=== PATIENT | female | born 1990 | race American Indian/Alaskan Native ===

== ENCOUNTER 2017-05-01 17:52 | Emergency (ER) | payer MEDICAID ==
[2017-05-01 17:59] VITALS: BP 146/65
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
[2017-05-01] MEDS ORDERED: Ketorolac 30 MG/ML SDV IM ONE (18:05)
[2017-05-01] MEDS ORDERED: Bacitracin Oint 1 GM U/D Packet TOP ONE (18:43)
== END 2017-05-01 19:04 | disposition home or self-care (01) ==
LOC: DL.ED 17:52
DX: S83.91XA Sprain of unspecified site of right knee, initial encounter (principal); S80.01XA Contusion of right knee, initial encounter; S80.211A Abrasion, right knee, initial encounter; F41.9 Anxiety disorder, unspecified; F32.9 Major depressive disorder, single episode, unspecified; F17.210 Nicotine dependence, cigarettes, uncomplicated; Z79.899 Other long term (current) drug therapy; Z90.710 Acquired absence of both cervix and uterus; W17.89XA Other fall from one level to another, initial encounter
CPT/HCPCS: 73562; 96372; 99283; J1885

== ENCOUNTER 2018-03-22 16:52 | Emergency (ER) | payer MEDICAID ==
[2018-03-22] MEDS ORDERED: Sulfamethoxazole/Trimethoprim 800-160 MG Tab PO ONE ×2 (16:53→18:59)
[2018-03-22 17:22] VITALS: BP 125/56
[2018-03-22] MEDS ORDERED: Phenazopyridine 95 MG Tab PO ONE (18:59)
--- NOTE | 2018-03-22 19:06 | EDM.PDOC ---
ED HPI GENERAL MEDICAL PROBLEM - General Chief Complaint: Genitourinary Problem Stated Complaint: [id number] BLOOD CLOTS IN URINE Time Seen by Provider: 03/22/18 18:50 Source of Information: Reports: Patient History Limitations: Reports: No Limitations - History of Present Illness INITIAL COMMENTS - FREE TEXT/NARRATIVE: C/O urinary frequency and burning since yesterday morning. Noted some blood yesterday in urine, few clots today with voiding. No fever, chills or flank pain. 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 (See Below) Other OB/BYN History: perforated uterine wall s/p IUD insertion, ovarian cyst; has had 2 d&c's in the past Musculoskeletal History: Reports: Back Pain, Chronic Neurological History: Reports: None Psychiatric History: Reports: Anxiety, Depression Other Psychiatric History: insomnia Endocrine/Metabolic History: Reports: None Hematologic History: Reports: None Immunologic History: 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 (See Below) Other Immunologic History: Hepitits C Oncologic (Cancer) History: Reports: None Dermatologic History: Reports: None - Infectious Disease History Infectious Disease History: Reports: Hepatitis C - Past Surgical History Head Surgeries/Procedures: Reports: None GI Surgical History: 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 (See Below) Other GI Surgeries/Procedures: EXPLORATORY LAPAROTOMY Female Surgical History: Reports: Section, D&C, Hysterectomy Social & Family History - Family History Family Medical History: Noncontributory - Tobacco Use Smoking Status *Q: Current Every Day Smoker Years of Tobacco use: 12 Packs/Tins Daily: 0.5 - Caffeine Use Caffeine Use: Reports: Soda - Recreational Drug Use Recreational Drug Use: No - Living Situation & Occupation Living situation: Reports: , with Family Occupation: Employed ED ROS GENERAL - Review of Systems Review Of Systems: ROS reveals no pertinent complaints other than HPI. ED EXAM, RENAL/ - Physical Exam Exam: See Below Exam Limited By: No Limitations General Appearance: Alert, No Apparent Distress Eye Exam: Bilateral Eye: EOMI Nose: Normal Inspection Throat/Mouth: Normal Voice Head: Atraumatic, Normocephalic Neck: Full Range of Motion Respiratory/Chest: No Respiratory Distress, Lungs Clear Cardiovascular: Normal Peripheral Pulses, Regular Rate, Rhythm Back Exam: No: CVA Tenderness (L), CVA Tenderness (R) Neurological: Alert, Oriented Psychiatric: Normal Affect, Normal Mood Skin Exam: Warm, Dry, Intact, Normal Color Course - Vital Signs Last Recorded V/S: Last Vital Signs Temp 97.8 F 03/22/18 17:20 Pulse 64 03/22/18 17:20 Resp 16 03/22/18 17:20 BP 125/56 L 03/22/18 17:20 Pulse Ox 100 03/22/18 17:20 - Orders/Labs/Meds Orders: Active Orders 24 hr Category Date Time Status UA W/MICROSCOPIC [URIN] Stat Lab 03/22/18 17:39 Ordered Labs: Laboratory Tests 03/22/18 Range/Units 17:39 Urine Color Yellow (YELLOW) Urine Appearance Turbid (CLEAR) Urine pH 6.0 (5.0-9.0) Ur Specific [place] >= 1.030 (1.005-1.030) Urine Protein >=300 H (NEGATIVE) Urine Glucose (UA) Negative (NEGATIVE) Urine Ketones Trace H (NEGATIVE) Urine Occult Blood Large H (NEGATIVE) Urine Nitrite Negative (NEGATIVE) Urine Bilirubin Small H (NEGATIVE) Urine Urobilinogen 1.0 (0.2-1.0) mg/dL Ur Leukocyte Esterase Trace H (NEGATIVE) Urine RBC >100 H /HPF Urine WBC 20-30 H (0-5/HPF) /HPF Ur Epithelial Cells Moderate H /HPF Amorphous Sediment Few (0/HPF) /HPF Urine Bacteria Moderate H (0-FEW/HPF) /HPF Urine Mucus Moderate H /LPF Meds: Medications Discontinued Medications Generic Name Dose Route Start Last Admin Trade Name Freq PRN Reason Stop Dose Admin Phenazopyridine HCl 190 mg 03/22/18 18:59 Urinary Pain Relief PO 03/22/18 19:00 ONETIME ONE Trimethoprim/Sulfamethoxazole 1 tab 03/22/18 18:59 Septra Ds PO 03/22/18 19:00 ONETIME ONE Departure - Departure Time of Disposition: 19:03 Disposition: Home, Self-Care 01 Condition: Good Clinical Impression: UTI, Urinary tract infectious disease - Discharge Information Instructions: Urinary Tract Infection, Adult, [id number] Referrals: Anay Castano [employer]OL [employer]ENT [Primary Care Provider] - Additional Instructions: push fluids Bactrim DS one twice daily for 5 days follow up if symptoms worsen with flank pain and fever/chills
[2018-03-22] MEDS ORDERED: Sulfamethoxazole/Trimethoprim 800-160 MG Tab ONE (19:12)
== END 2018-03-22 19:18 | disposition home or self-care (01) ==
LOC: DL.ED 16:52
DX: N39.0 Urinary tract infection, site not specified (principal); F17.210 Nicotine dependence, cigarettes, uncomplicated; Z91.048 Other nonmedicinal substance allergy status
CPT/HCPCS: 81001; 99283; A9270

== ENCOUNTER 2020-12-04 15:33 | Emergency (ER) | payer MEDICAID ==
[2020-12-04 15:49] VITALS: BP 128/78; PULSE 110
--- NOTE | 2020-12-04 16:04 | EDM.PDOC ---
ED HPI GENERAL MEDICAL PROBLEM - General Chief Complaint: Skin Complaint Stated Complaint: PT HURT BACK LAST WEEK, NOW BACK IS INFECTED Time Seen by Provider: 12/04/20 15:55 Source of Information: Reports: Patient, RN, RN Notes Reviewed History Limitations: Reports: No Limitations - History of Present Illness INITIAL COMMENTS - FREE TEXT/NARRATIVE: Patient presents to the ED via personal vehicle with complaints of painful wound to her midline, superior buttocks. The patient states she was sledding with her children seven days ago and injured her lower back on a "..jump." She notes she had bruising to the area, but no open wounds. Today she felt "something pop" and felt drainage to the affected area. She denies fever, shaking chills, palpitations, or history of injury to the area. She states she has applied heat to the affected area and has taken ibuprofen infrequently for the pain; neither have offered her much relief of pain. Left Upper Buttock Pain Score (Numeric/FACES): 10 - Related Data Allergies Allergy/AdvReac Type Severity Reaction Status Date / Time kiel Allergy Sneezing Uncoded 12/04/20 15:46 horse hair Allergy Sneezing Uncoded 12/04/20 15:46 Home Meds: Home Meds Ibuprofen [Advil] 800 mg PO ASDIRECTED PRN 08/12/16 [History] Pregabalin [Lyrica] 75 mg PO DAILY 12/04/20 [History] Pregabalin [Lyrica] 150 mg PO DAILY 12/04/20 [History] Past Medical History - Past Health History Medical/Surgical History: Denies Medical/Surgical History HEENT History: Reports: None Cardiovascular History: Reports: None Respiratory History: Reports: None Gastrointestinal History: Reports: None Genitourinary History: Reports: None 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: 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 (See Below) Other 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: perforated uterine wall s/p IUD insertion, ovarian cyst Musculoskeletal History: Reports: Back Pain, Chronic Neurological History: Reports: None Psychiatric History: Reports: Anxiety, Depression Other Psychiatric History: insomnia Endocrine/Metabolic History: Reports: None Hematologic History: Reports: None Immunologic History: 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 (See Below) Other Immunologic History: Hepitits C Oncologic (Cancer) History: Reports: None Dermatologic History: Reports: None - Infectious Disease History Infectious Disease History: Reports: Hepatitis C - Past Surgical History Head Surgeries/Procedures: Reports: None GI Surgical History: 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 (See Below) Other GI Surgeries/Procedures: EXPLORATORY LAPAROTOMY Female Surgical History: Reports: Section, D&C, Hysterectomy Social & Family History - Family History Family Medical History: No Pertinent Family History - Tobacco Use Tobacco Use Status *Q: Current Every Day Tobacco User Years of Tobacco use: 10 Packs/Tins Daily: 0.5 - Caffeine Use Caffeine Use: Reports: Energy Drinks - Recreational Drug Use Recreational Drug Use: No - Living Situation & Occupation Living situation: Reports: , with Family Occupation: Employed ED ROS GENERAL - Review of Systems Review Of Systems: Comprehensive ROS is negative, except as noted in HPI. ED EXAM, SKIN/RASH Exam: See Below Exam Limited By: No Limitations General Appearance: Alert, No Apparent Distress Eye Exam: Bilateral Eye: EOMI, Normal Inspection, PERRL (4mm) Respiratory/Chest: No Respiratory Distress, Lungs Clear, Normal Breath Sounds, No Accessory Muscle Use, Chest Non-Tender Cardiovascular: Normal Peripheral Pulses, Regular Rate, Rhythm, No Edema, No Gallop, No JVD, No Murmur, No Rub Peripheral Pulses: 2+: Radial (L), Radial (R), Dorsalis Pedis (L), Dorsalis Pedis (R) (Female) Exam: Deferred Rectal (Female) Exam: Deferred Back Exam: Other (Open wound to midline, superior buttock) Extremities: Normal Inspection, Normal Range of Motion, Non-Tender, No Pedal Edema, Normal Capillary Refill Neurological: Alert, Oriented, CN II-XII Intact, Normal Cognition, Normal Gait, No Motor/Sensory Deficits Psychiatric: Anxious Skin: Ecchymosis (To midline superior buttocks; ), Wound/Incision (Open abscess to midline superior buttock; Small amount of purulent drainage noted) Location, Skin: Back (Midline, superior buttocks) Characteristics: Erythematous Associated features: Warmth, Tenderness, Swelling, Inflammation, Weeping Lymphatic: No Adenopathy Course - Vital Signs Last Recorded V/S: Last Vital Signs Temp 98.2 F 12/04/20 15:47 Pulse 110 H 12/04/20 15:47 Resp 28 H 12/04/20 15:47 BP 128/78 12/04/20 15:47 Pulse Ox 98 12/04/20 15:47 - Re-Assessments/Exams Free Text/Narrative Re-Assessment/Exam: 12/04/20 Xray of sacrum and coccyx unremarkable for acute processes. Superficial wound is currently draining. No I&D performed as no mass appreciated upon palpation. Will treat for cellulitis with Bactrim. Red flag signs and symptoms which would warrant reevaluation discussed with patient. She verbalized understanding and agreement with the plan of care. Departure - Departure Time of Disposition: 16:40 Disposition: Home, Self-Care 01 Condition: Good Clinical Impression: Cellulitis Qualifiers: Site of cellulitis: buttock Qualified Code(s): L03.317 - Cellulitis of buttock - Discharge Information *PRESCRIPTION DRUG MONITORING PROGRAM REVIEWED*: Not Applicable *COPY OF PRESCRIPTION DRUG MONITORING REPORT IN PATIENT SHAUN: Not Applicable Instructions: Cellulitis, Adult Forms: ED Department Discharge Additional Instructions: Rx: Bactrim DS 1.) Take all of your antibiotic until it is gone. 2.) You may take acetaminophen (Tylenol) 1000mg every six hours, as pain persists. You may take ibuprofen (Motrin/Advil) 400mg, as pain persists. 3.) You may apply ice to the area, as pain and swelling persist. Sepsis Event Note (ED) - Evaluation Sepsis Screening Result: No Definite Risk - Focused Exam Vital Signs: Vital Signs Temp Pulse Resp BP Pulse Ox 12/04/20 15:47 98.2 F 110 H 28 H 128/78 98
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
== END 2020-12-04 16:52 | disposition home or self-care (01) ==
LOC: DL.ED 15:33
DX: L03.317 Cellulitis of buttock (principal); L02.31 Cutaneous abscess of buttock; Z72.0 Tobacco use; Z91.048 Other nonmedicinal substance allergy status
CPT/HCPCS: 72220; 99283; 99284

== ENCOUNTER 2022-06-23 10:38 | Emergency (ER) | payer MEDICAID ==
[2022-06-23] MEDS ORDERED: Cyclobenzaprine 10 MG Tab PO ONE (10:39)
[2022-06-23 11:11] VITALS: BP 131/70; PULSE 77
[2022-06-23] MEDS ORDERED: Orphenadrine 60 MG/2 ML Inj IM ONE (11:19)
[2022-06-23] MEDS ORDERED: Ketorolac 30 MG/ML SDV IM ONE (11:19)
[2022-06-23 11:46] LABS: AMPHETAMINES,URINE NEGATIVE (NEGATIVE); BARBITURATES,URINE NEGATIVE (NEGATIVE); BENZODIAZEPINE,URINE NEGATIVE (NEGATIVE); MDMA (ECSTASY), URINE NEGATIVE (NEGATIVE); METHADONE,URINE NEGATIVE (NEGATIVE); METHAMPHETAMINES,URINE NEGATIVE (NEGATIVE); OPIATES,URINE NEGATIVE (NEGATIVE); OXYCODONE,URINE NEGATIVE (NEGATIVE); PHENCYCLIDINE,URINE NEGATIVE (NEGATIVE); TCA,URINE NEGATIVE (NEGATIVE)
[2022-06-23] MEDS ORDERED: Cyclobenzaprine 10 MG Tab ONE (12:25)
== END 2022-06-23 12:30 | disposition home or self-care (01) ==
LOC: DL.ED 10:38
DX: M54.31 Sciatica, right side (principal); M62.838 Other muscle spasm; Z91.19 Patient's noncompliance with other medical treatment and regimen
CPT/HCPCS: 36415; 80053; 80305-QW; 81001; 81025; 85025; 85379; 87086; 96372; 99283; A9270-GY; J1885; J2360

== ENCOUNTER 2024-06-30 17:08 | Emergency (ER) | payer MEDICAID ==
[2024-06-30 17:31] LABS: BASOPHILS PERCENT AUTO 0.4 % (0.0-1.0); EOSINOPHILS PERCENT AUTO 2.2 % (1.0-3.0); HEMATOCRIT 42.5 % (37.0-47.0); HEMOGLOBIN 14.4 g/dL (12.0-16.0); LYMPHOCYTES PERCENT AUTO 36.7 % (20.5-50.1); MEAN CORPUSCULAR HEMOGLOBIN 28.1 pg (27.0-34.0); MEAN CORPUSCULAR HGB CONC 33.9 g/dL (33.0-35.0); MONOCYTES PERCENT AUTO 10.1 % (2-8); NEUTROPHILS PERCENT AUTO 50.6 % (42.2-75.2); PLATELET COUNT,PLT 282 10^3/uL (150-450); RED BLOOD CELL COUNT 5.12 10^6/uL (4.2-5.4); WHITE BLOOD CELL COUNT,WBC 11.4 10^3/uL (5.0-10.0)
[2024-06-30 17:57] LABS: A/G RATIO 0.9; ALANINE AMINOTRANSFERASE,ALT 64 U/L (14-59); ALBUMIN 3.9 g/dL (3.4-5.0); ALKALINE PHOSPHATASE 97 U/L (46-116); ANION GAP 16.1 mEq/L (7-13); ASPARTATE AMNIOTRANSFERASE,AST 41 U/L (15-37); BILIRUBIN TOTAL 0.6 mg/dL (0.2-1.0); BLOOD UREA NITROGEN,BUN 17 mg/dL (7-18); C-REACTIVE PROTEIN 2.04 ng/dL (<=0.50); CALCIUM 9.4 mg/dL (8.5-10.1); CARBON DIOXIDE,CO2 23 mmol/L (21-32); CHLORIDE,CL 100 mmol/L (98-107); CREATININE 0.85 mg/dL (0.55-1.02); GLUCOSE RANDOM 87 mg/dL (70-99); MAGNESIUM 2.1 mg/dL (1.8-2.4); POTASSIUM,K 4.1 mmol/L (3.5-5.1); PROTEIN TOTAL,TP 8.3 g/dL (6.4-8.2); SODIUM,NA 135 mmol/L (136-145)
[2024-06-30 17:59] LABS: ESTIMATED GFR 94 mL/min (>=60)
[2024-06-30] MEDS: Iopamidol 612 MG/ML 100 ML Bottle IVPUSH ONE (18:22)
[2024-06-30] MEDS: Sodium Chloride 0.9% 10 ML Syringe FLUSH PRN (18:23)
[2024-06-30] MEDS: GI Cocktail Oral Solution 30 ML PO ONE (18:23)
[2024-06-30 18:37] LABS: LIPASE 22 U/L (16-77)
[2024-06-30 18:44] LABS: AMYLASE 21 U/L (25-115)
[2024-06-30] MEDS: HYDROmorphone 0.5 MG/0.5 ML Syringe IVPUSH ONE (19:23)
[2024-06-30] MEDS: Ondansetron 4 MG/2 ML SDV IVPUSH ONE (19:23)
[2024-06-30] MEDS: Ketorolac 30 MG/ML SDV IVPUSH ONE (19:33)
[2024-06-30 19:40] VITALS: BP 152/97; PULSE 76
== END 2024-06-30 19:57 | disposition home or self-care (01) ==
LOC: DL.ED 17:08
DX: R10.13 Epigastric pain (principal); Z91.048 Other nonmedicinal substance allergy status; Z79.899 Other long term (current) drug therapy; Z90.710 Acquired absence of both cervix and uterus
CPT/HCPCS: 36415; 74177; 80053; 82150; 83690; 83735; 84484; 85025; 86140; 93005; 96374; 96375; 99285; A9270; J1170; J1885; J2405; Q9967; 93010; 99284; J3490

== ENCOUNTER 2024-07-07 14:04 | Emergency (ER) | payer MEDICAID ==
[2024-07-07 14:36] VITALS: BP 133/116; PULSE 81
[2024-07-07] MEDS: Sodium Chloride 0.9% 1,000 ML IV ONE (15:03)
[2024-07-07] MEDS: Ondansetron 4 MG/2 ML SDV IVPUSH ONE ×2 (15:03→17:24)
[2024-07-07 15:08] LABS: BASOPHILS PERCENT AUTO 0.1 % (0.0-1.0); EOSINOPHILS PERCENT AUTO 1.3 % (1.0-3.0); HEMOGLOBIN 15.2 g/dL (12.0-16.0); LYMPHOCYTES PERCENT AUTO 8.1 % (20.5-50.1); MEAN CORPUSCULAR VOLUME 84.7 fL (80-100); MONOCYTES PERCENT AUTO 8.5 % (2-8); PLATELET COUNT,PLT 296 10^3/uL (150-450); RED BLOOD CELL COUNT 5.43 10^6/uL (4.2-5.4); WHITE BLOOD CELL COUNT,WBC 20.1 10^3/uL (5.0-10.0)
[2024-07-07] MEDS: Famotidine 20 MG/2 ML SDV IVPUSH ONE (15:11)
[2024-07-07 15:28] LABS: A/G RATIO 0.8; ALBUMIN 3.5 g/dL (3.4-5.0); ANION GAP 13.1 mEq/L (7-13); BILIRUBIN TOTAL 0.3 mg/dL (0.2-1.0); BUN/CREATININE RATIO 16.7 (No establ ref range); CALCIUM 8.9 mg/dL (8.5-10.1); CREATININE 0.72 mg/dL (0.55-1.02); EST CRCL DRUG DOSING (CG) 114.2 mL/min; POTASSIUM,K 4.1 mmol/L (3.5-5.1); PROTEIN TOTAL,TP 7.8 g/dL (6.4-8.2)
[2024-07-07] MEDS: Iopamidol 612 MG/ML 100 ML Bottle IVPUSH ONE (15:48)
[2024-07-07 15:49] LABS: APPEARANCE,URINE SLIGHTLY CLOUDY (CLEAR); BILIRUBIN,URINE NEGATIVE (NEGATIVE); COLOR,URINE YELLOW (YELLOW); GLUCOSE,URINE NEGATIVE (NEGATIVE); KETONES,URINE NEGATIVE (NEGATIVE); LEUKOCYTE ESTERASE,URINE NEGATIVE (NEGATIVE); NITRITE,URINE NEGATIVE (NEGATIVE); OCCULT BLOOD,URINE TRACE-INTACT (NEGATIVE); PH,URINE 5.5 (5.0-9.0); PROTEIN,URINE NEGATIVE (NEGATIVE); UROBILINOGEN,URINE 0.2 mg/dL (0.2-1.0)
[2024-07-07 15:59] LABS: AMORPHOUS SEDIMENT,URINE FEW /HPF (NOT SEEN); BACTERIA,URINE FEW /HPF (0-FEW/HPF); EPITHELIAL CELLS,URINE MODERATE /HPF (NOT SEEN); MUCUS,URINE MODERATE /LPF (NOT SEEN); RBC,URINE 0-5 /HPF (0-5); WBC,URINE 0-5 /HPF (0-5/HPF)
[2024-07-07] MEDS: Piperacillin/Tazobactam 4.5 GM in Sodium Chloride 0.9% 100 ML IV ONE (17:03)
[2024-07-07] MEDS: Sodium Chloride 0.9% 10 ML Syringe FLUSH PRN (17:04)
[2024-07-07] MEDS: Nicotine 21 MG/24 Hr Patch TRDERM ONE (17:24)
[2024-07-07] MEDS: HYDROmorphone 1 MG/ML Syringe IVPUSH ONE (17:24)
== END 2024-07-07 17:41 ==
LOC: DL.ED 14:04
DX: R79.89 Other specified abnormal findings of blood chemistry (principal); K35.30 Acute appendicitis with localized peritonitis, without perforation or gangrene; F17.210 Nicotine dependence, cigarettes, uncomplicated; Z90.49 Acquired absence of other specified parts of digestive tract; Z79.899 Other long term (current) drug therapy; Z91.048 Other nonmedicinal substance allergy status
CPT/HCPCS: 36415; 74177; 80053; 81001; 83605; 83690; 85025; 96361; 96365; 96375; 96376; 99285; 99285-25; A9270-GY; J1170; J2405; J2543; J3490; J7030; Q9967